=== PATIENT | female | born 1935 | race Caucasian/White ===

== ENCOUNTER 2017-06-06 17:20 | Outpatient (CLI) | END 2017-06-06 17:21 | disposition home or self-care (01) | LOC: NONPT 17:20 | PROVIDERS: ATTEND Family Medicine | DX: F03.91 Unspecified dementia, unspecified severity, with behavioral disturbance (principal); R32 Unspecified urinary incontinence; R41.89 Other symptoms and signs involving cognitive functions and awareness | CPT/HCPCS: 81001 ==